=== PATIENT | female | born 1970 | race Caucasian/White ===

== ENCOUNTER → 2023-01-01 09:31 | Outpatient (BNVA) | payer OTHER, SELFPAY | PROVIDERS: PCP Physician Assistant; Visit Provider Nurse Practitioner Family | DX: M25.511 Pain in right shoulder (principal); M19.011 Primary osteoarthritis, right shoulder; M75.101 Unspecified rotator cuff tear or rupture of right shoulder, not specified as traumatic; G56.03 Carpal tunnel syndrome, bilateral upper limbs; G89.4 Chronic pain syndrome | CPT/HCPCS: 99202 ==

== ENCOUNTER 2023-01-15 13:16 | Outpatient (AMB) | payer OTHER, SELFPAY ==
--- NOTE | 2023-01-15 13:16 | A.OFFVIS_ITS ---
Intake Intake Visit Reasons: question about inj w/ US Allergies fluoxetine [From PROZAC] Allergy (Intermediate, Verified 01/01/23 09:37) HEADACHE carisoprodol [From SOMA] Allergy (Unknown, Verified 01/01/23 09:37) SWELLING Prozac Allergy (Unknown, Uncoded 04/09/12 00:00) upset stomach Soma Allergy (Unknown, Uncoded 04/09/12 00:00) upset stomach HPI question about inj w/ US HPI Details 52-year-old female presenting today for tele health visit to discuss upcoming shoulder procedure. She has shoulder pain that radiates to her neck. She states that her pain has been worsening recently. She has severe pain in her neck that triggers her headaches. Her pain started about 9?10 months ago and was manageable. She now has episodes of numbness on her whole right side, including her shoulder, arm, and legs, after waking up in the morning. She usually walks for 5 minutes after waking up to resolve the numbness. 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 She has been dropping things from her hand at work. She has been using Tylenol and ibuprofen 800 mg for pain. She states that her pain is affecting her performance at work. She has been absent from work for the past two days. She has already tried physical therapy, lidocaine, or Salonpas patches in the past. She had tried tramadol in the past with good benefits. She has a scheduled appointment for MRI of the right shoulder. [facility] Medical History (Updated 01/01/23 @ 12:15 by NOÉ Durán) Bilateral carpal tunnel syndrome Borderline hypercholesterolemia COPD (chronic obstructive pulmonary disease) Diverticulosis Fibromyalgia Former tobacco use Hepatitis C without hepatic coma Hx of polydrug abuse Hypertension Hypothyroid Knee pain Vitamin A deficiency Weakness of left leg Surgical History H/O: hysterectomy History of appendectomy History of left knee replacement History of left knee surgery History of tonsillectomy Hx of cholecystectomy Social History (Updated 01/01/23 @ 09:51 by Marley Jasmine) Alcohol intake: current Alcohol intake frequency: a few times a month Patient Tobacco Use Status: Former Tobacco user Quit Date: 06/2020 Substance Use Type: Crack/Cocaine, Former Substance User and Opiates Review of Systems Const All systems reviewed & are unremarkable except as noted in HPI and below Results Reviewed Results Reviewed: No imaging is available for review. Assessment & Plan Assessment & Plan (1) Painful arc syndrome of right shoulder: Code(s): M75.101 - Unspecified rotator cuff tear or rupture of right shoulder, not specified as traumatic Plan 1. Discussed plan to proceed with in ultrasound-guided subacromial bursa injection for her potential right rotator cuff injury. Informed the patient that a glenohumeral injection is unlikely to help given the lack of significant osteoarthritis in her glenohumeral joint. 2. Will consider neck MRI in the future if her neck pain associated with upper extremity numbness and weakness continues. 3. Provided a 1 time script of tramadol 50 mg taken twice daily for the next 1 week until her shoulder injection is done. Scribed for Dr. Walker by Dell Dela Cruz, medical insurance biller, on 01/15/2023. I, Dr. Walker, have personally reviewed and agree with the information entered by the scribe. Medications: New tramadol 50 mg PO BID PRN 14 tabs 0RF pain Telehealth Telehealth Location of provider rendering services: practice address Location of patient: address on file Patient Identification confirmed using: Name, : Yes Telehealth method: voice only Patient verbally consented to treatment: Yes Patient verbally consented to billing insurance company: Yes Patient informed of any privacy concerns related to visit: Yes Minutes spent on Phone/Video with Pt.: 12 Coding Level of Care Code Tele Est Pt Level 3 (90255) Diagnoses Painful arc syndrome of right shoulder M75.101
== END 2023-01-15 13:17 | disposition home or self-care (01) ==
LOC: HO.PMC 13:16
PROVIDERS: PCP Physician Assistant; Visit Provider Internal Medicine
DX: M75.101 Unspecified rotator cuff tear or rupture of right shoulder, not specified as traumatic (principal)
CPT/HCPCS: 99213

== ENCOUNTER → 2023-01-15 13:16 | Outpatient (BNVA) | payer OTHER, SELFPAY | PROVIDERS: PCP Physician Assistant; Visit Provider Internal Medicine ==

== ENCOUNTER 2023-01-22 14:31 | Outpatient (AMB) | payer OTHER, SELFPAY ==
--- NOTE | 2023-01-22 14:34 | A.OFFVIS_ITS ---
Intake Vital Signs 01/22/23 14:35 Height 5 ft 4 in Weight 194 lb BMI 33.3 BP 138/73 Blood Pressure Location Lt brachial Position Sitting Respiration 14 Pulse 86 Pulse Source Pulse Oximeter Pulse Oximetry (%) 97 Oxygen Delivery Method Room Air Intake Visit Reasons: theraputic shoulder injection Allergies fluoxetine [From PROZAC] Allergy (Intermediate, Verified 01/22/23 14:36) HEADACHE carisoprodol [From SOMA] Allergy (Unknown, Verified 01/22/23 14:36) SWELLING Medication List - Last Reconciled 01/22/23 by Jeanine Queen LPN amlodipine 5 mg PO DAILY cholecalciferol (vitamin D3) 50 mcg PO DAILY levothyroxine 88 mcg PO DAILY tramadol 50 mg PO BID PRN HPI theraputic shoulder injection HPI0 Details 52-year-old female presenting today for a therapeutic shoulder injection. She reports worsening back, neck, and shoulder pain. She states that her s houlder blade is stiff and painful. She noticed occasional swelling in her arm, forearm, and fingers. She reports electrical sensation in her bilateral hand fingers. She has pain in the posterior side of the neck, which radiates to her head. She also experienced mild otalgia. She has not tried physical therapy for neck pain in the past. [facility] Medical History (Updated 01/01/23 @ 12:15 by NOÉ Durán) Bilateral carpal tunnel syndrome Borderline hypercholesterolemia COPD (chronic obstructive pulmonary disease) Diverticulosis Fibromyalgia Former tobacco use Hepatitis C without hepatic coma Hx of polydrug abuse Hypertension Hypothyroid Knee pain Vitamin A deficiency Weakness of left leg Surgical History H/O: hysterectomy History of appendectomy History of left knee replacement History of left knee surgery History of tonsillectomy Hx of cholecystectomy Social History (Updated 01/01/23 @ 09:51 by Marley Jasmine) Alcohol intake: current Alcohol intake frequency: a few times a month Patient Tobacco Use Status: Former Tobacco user Quit Date: 06/2020 Substance Use Type: Crack/Cocaine, Former Substance User and Opiates Review of Systems Const All systems reviewed & are unremarkable except as noted in HPI and below Physical Exam Vital Signs: Last Vital Signs Pulse 86 01/22/23 14:35 Resp 14 01/22/23 14:35 BP 138/73 01/22/23 14:35 Pulse Ox 97 01/22/23 14:35 Oxygen Delivery Method Room Air 01/22/23 14:35 BMI result Body Mass Index 33.3 General: Appears afebrile. Alert and oriented. Mood and affect appropriate. Follows and participates in conversation appropriately. Respiratory effort is unlabored. Able to transition from sit to stand unassisted. Ambulates with bilaterally normal heel strike and toe off. Office Procedures Joint Injection/Drain Joint Injection/Drain Primary Site: right shoulder Prep: site was prepped using sterile technique Injected: 40 mg of, Kenalog, with 3 mL of (bupivacaine 0.2%), 1% plain lidocaine and other (in the subacromial space) Approach Used: posterolateral (under US guidance) Procedure: The patient tolerated the procedure well Coding 26521 - Glenohumeral with ultrasound guidance Procedure code (CPT) selection complete Results Reviewed Results Reviewed: No imaging is available for review. Assessment & Plan Assessment & Plan (1) Painful arc syndrome of right shoulder: Code(s): M75.101 - Unspecified rotator cuff tear or rupture of right shoulder, not specified as traumatic (2) Chronic pain syndrome: Code(s): G89.4 - Chronic pain syndrome Plan Patient is status post subacromial injection. Patient tolerated procedure well and was discharged home in stable condition with discharge instructions. All questions were answered. We will follow-up in two weeks via telephone or in clinic to assess response to therapy. A follow-up appointment was made during today's visit. If not enough relief from the injection, will schedule her for a right temporary suprascapular nerve stimulator. Discussed the risks and benefits of the procedure with the patient in detail. All questions were answered. The patient is on board with the plan. Justification for interventional therapy: ? Patient with average pain > 6/10 ? Patient has exhausted conservative therapy Scribed for Dr. Walker by Dell Dela Cruz, medical intern, on 01/22/2023. I, Dr. Walker, have personally reviewed and agree with the information entered by the scribe. Coding Level of Care Code Est Pt Level 3 (92288) Diagnoses Painful arc syndrome of right shoulder M75.101 Chronic pain syndrome G89.4 CPT Codes Coding - Joint 8: 29186 - Glenohumeral with ultrasound guidance ([id number])
[2023-01-22 14:35] VITALS: BP 138/73; PULSE 86; RESP 14; O2SAT 97; BMI 33.3
== END 2023-01-22 15:23 | disposition home or self-care (01) ==
PROVIDERS: PCP Physician Assistant; Visit Provider Internal Medicine
DX: M75.101 Unspecified rotator cuff tear or rupture of right shoulder, not specified as traumatic (principal); G89.4 Chronic pain syndrome
CPT/HCPCS: 20611; 99213

== ENCOUNTER → 2023-01-22 14:31 | Outpatient (BNVA) | payer OTHER, SELFPAY | PROVIDERS: PCP Physician Assistant; Visit Provider Internal Medicine | DX: M75.101 Unspecified rotator cuff tear or rupture of right shoulder, not specified as traumatic (principal); G89.4 Chronic pain syndrome | CPT/HCPCS: 20611; 99212; J2795; J3301 ==

== ENCOUNTER 2023-02-07 08:09 | Outpatient (AMB) | payer OTHER, SELFPAY ==
--- NOTE | 2023-02-07 08:17 | MHC.OFFVIS ---
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 Patient reports numbness, tingling, and intermittent shooting pain in her hand started about 6 months ago and has been getting worse. Her wrist braces are no longer helping. She frequently drops items and has locking in her middle fingers. Patient had an EMG done but no other tx. 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 She states she was here today for her bilateral hands but she feels her right shoulder is her primary concerns and would like to focus on that. She reports she has pain in her right shoulder which radiates to her neck. She also c/o frequently dropping items and numbness in her shoulder and hands. She is taking Celebrex for her pain with benefits. She also had an injection in her right shoulder 1 week ago at pain mgmnt who did send her for an MRI of the right shoulder. She has a history of shoulder injury about 16 years ago. 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 [facility] Medical History Bilateral carpal tunnel syndrome Borderline hypercholesterolemia COPD (chronic obstructive pulmonary disease) Diverticulosis Fibromyalgia Former tobacco use Hepatitis C without hepatic coma Hx of polydrug abuse Hypertension Hypothyroid Knee pain Vitamin A deficiency Weakness of left leg Surgical History H/O: hysterectomy History of appendectomy History of left knee replacement History of left knee surgery History of tonsillectomy Hx of cholecystectomy Social History (Updated 02/07/23 @ 08:21 by FAINA Yadav) Alcohol intake: current Alcohol intake frequency: a few times a month Patient Tobacco Use Status: Former Tobacco user Quit Date: 06/2020 Substance Use Type: Crack/Cocaine, Former Substance User and Opiates Current occupational status: employed 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, right hand dominant Review of Systems Const All systems reviewed & are unremarkable except as noted in HPI and below Physical Exam Vital Signs: BMI result Body Mass Index 33.3 Const General: cooperative, healthy appearing, comfortable, no acute distress, well developed and alert Orientation/consciousness: patient oriented x3 HEENT Head: Yes normal to inspection, Yes normocephalic and Yes atraumatic Eyes General: appearance normal, both eyes and all related structures Resp Effort & Inspection: normal respiratory effort and able to speak in complete sentences Cardio Rate: regular rate Peripheral pulses: Peripheral pulses 2+ throughout GI Palpation (GI): Soft to palpation Skin Lesions: no lesions Rashes: no rashes Neuro General: patient oriented x3 Extrem Other: Right shoulder normal to inspection. Tenderness over the bicipital groove and along the deltoid region of the shoulder. Forward flexion to 175, external rotation to 90, internal rotation to S1. 5/5 RTC strength She is able to activate her RTC however there is some discomfort associated with this when compared to the contralateral side. Positive Guerrero. NVI. Results Reviewed Results Reviewed: xrays of the right shoulder from [facility] in 11/2022 1.Mild ac joint oa MRI from [facility] 01/29/23 1.small intrasubstance partial tear at the junction of the middle and posterior one third portion of the supraspinatus tendon 2.possible additional bursal sided fraying or superficial partial tearing of the posterior tendon but without clearly measurable defect 3.minimal arthrosis of the ac joint 4.minimal partial tearing along the myotendinous junction of the infraspinatus tendon without measurable defect 5.trace edema and or fluid in the subacriomial deltoid bursa compatible with bursitis Assessment & Plan Assessment & Plan (1) Painful arc syndrome of right shoulder: Code(s): M75.101 - Unspecified rotator cuff tear or rupture of right shoulder, not specified as traumatic (2) Partial thickness rotator cuff tear: Code(s): M75.110 - Incomplete rotator cuff tear or rupture of unspecified shoulder, not specified as traumatic Plan She was given an injection of right shoulder back on January 22 with pain management which she states has given her some relief. She was not given an order of physical therapy so I did put that in today and I stated the importance of doing this. I would like to see her back in 6 weeks for reevaluation, sooner if needed. Orders: Orders PT Evaluation and Treatment Today M75.101 - Unspecified rotator cuff tear or rupture of right shoulder, not specified as traumatic, M75.110 - Incomplete rotator cuff tear or rupture of unspecified shoulder, not specified as traumatic Patient Instructions: Scribed for Christina Wolfe PA-C, by Reyes Olivares medical massage therapist, on 02/07/2023 at 8:15 AM EST. I, Christina Wolfe PA-C, have personally reviewed and agree with the information entered by the scribe. Coding Level of Care Code New Pt Level 3 (53611) Diagnoses Painful arc syndrome of right shoulder M75.101 Partial thickness rotator cuff tear M75.110
[2023-02-07 08:29] VITALS: BMI 33.3
== END 2023-02-07 09:03 | disposition home or self-care (01) ==
PROVIDERS: PCP Physician Assistant; Visit Provider Physician Assistant
DX: M75.111 Incomplete rotator cuff tear or rupture of right shoulder, not specified as traumatic (principal); G56.03 Carpal tunnel syndrome, bilateral upper limbs
CPT/HCPCS: 99203

== ENCOUNTER → 2023-02-07 08:09 | Outpatient (BNVA) | payer OTHER, SELFPAY | PROVIDERS: PCP Physician Assistant; Visit Provider Physician Assistant | DX: G56.03 Carpal tunnel syndrome, bilateral upper limbs (principal); M75.101 Unspecified rotator cuff tear or rupture of right shoulder, not specified as traumatic; M75.111 Incomplete rotator cuff tear or rupture of right shoulder, not specified as traumatic; M79.7 Fibromyalgia; F14.21 Cocaine dependence, in remission; F11.11 Opioid abuse, in remission | CPT/HCPCS: 99202 ==

== ENCOUNTER 2023-02-23 06:55 | Outpatient (RCR) | payer OTHER, SELFPAY ==
--- NOTE | 2023-02-23 07:57 | MHC.PT.EP ---
[facility] [place] Office [place] Office [place] Office [address] [phone] F: [phone] F: [phone] F: [phone] F: [phone] Physical Therapy Plan of Care Date of Evaluation: Date of Surgery: Diagnosis: R partial thickness rotator cuff tear Assessment: Patient is a 53 year old R handed female who presents with s/s consistent with R shoulder pain. 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 Patient past medical history includes TKA, history of shoulder pain, fibromyalgia, Hep C, and COPD. Current impairments include pain, posture, ROM, strength, activity tolerance and functional mobility. Functional limitations include decreased ability to sleep, lift, carry, reach, chop and prep food. Patient is motivated with good rehab potential. Skilled PT will address impairments and functional limitations in order to achieve goals. Frequency and Duration: The patient will be seen 1x/week for 6 weeks Short Term Goals: I with HEP - 2 weeks AROM flexion and abduction 120 - 3 weeks ER 60 AROM - 3 weeks improved postural awareness - 3 weeks Motor Expert Goals: Strength 4+/5 grossly - 5 weeks SPADI 60/130 - 5 weeks AROM WNL pain free - 5 weeks return to all work activities max pain 2/10 - 5 weeks Treatment Plan: Modalities to reduce pain, spasms and effusion. Manual therapy to restore motion and function. Therapeutic exercise to improve strength and flexibility. Neuromuscular re-education for posture and balance. Therapeutic activities to return to functional activities of daily living. Electronically signed by: Servando Ibarra, PT Please sign and return to therapist. Thank you for your referral.
--- NOTE | 2023-07-24 10:33 | MHC.PT.DC ---
[facility] [place] [facility] [place] [facility] [place] [facility] [address] Anneliese Naqvi [address] [phone] F: [phone] F: [phone] F: [phone] F: [phone] Physical Therapy Discharge Report Diagnosis: R partial thickness rotator cuff tear Date of Surgery: Date of Evaluation: 02/23/23 Date of Discharge: 03/26/23 Treatments to Date: 1 Cancellations to Date: No Shows to Date: Discharge Status: Independent with HEP Patient Elected to Stop Discharge Summary: Pt did not return after evaluation. Patient is a 53 year old R handed female who presents with s/s consistent with R shoulder pain. 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 Patient past medical history includes TKA, history of shoulder pain, fibromyalgia, Hep C, and COPD. Current impairments include pain, posture, ROM, strength, activity tolerance and functional mobility. Functional limitations include decreased ability to sleep, lift, carry, reach, chop and prep food. Patient is motivated with good rehab potential. Skilled PT will address impairments and functional limitations in order to achieve goals. Electronically signed by: Servando Ibarra, PT Please sign and return to therapist. Thank you for your referral.
== END 2023-07-24 10:34 | disposition home or self-care (01) ==
LOC: HO.PTCHIC 06:55
PROVIDERS: PCP Internal Medicine; Visit Provider Physician Assistant
DX: M75.101 Unspecified rotator cuff tear or rupture of right shoulder, not specified as traumatic (principal); M75.110 Incomplete rotator cuff tear or rupture of unspecified shoulder, not specified as traumatic
CPT/HCPCS: 97110; 97163

== ENCOUNTER 2023-07-12 16:38 | Emergency (ER) | payer OTHER, SELFPAY ==
[2023-07-12 17:12] VITALS: BP 184/97; PULSE 94; RESP 20; TEMP 37.9; O2SAT 97; BMI 34.4
--- NOTE | 2023-07-12 17:29 | ED.GENADULT ---
HPI - General Adult General Chief complaint: General Medical Stated complaint: covid, stomach sore, hurts to walk? Time Seen by Provider: 07/12/23 17:26 Source: patient Mode of arrival: ambulatory Limitations: no limitations History of Present Illness HPI narrative: 53 yold female presents to the ED for painful abscess on abdomen for the past 3 days. patient also recently diagnosed with covid on sunday. Patient states no chest pain, shortnes of breath, drooling, or recent trauam. Related Data Home Medications Medication Instructions Recorded Confirmed amlodipine 5 mg tablet 5 mg PO DAILY 01/01/23 01/22/23 cholecalciferol (vitamin D3) 50 50 mcg PO DAILY 01/01/23 01/22/23 mcg (2,000 unit) tablet levothyroxine 88 mcg tablet 88 mcg PO DAILY 01/01/23 01/22/23 Previous Rx's Medication Instructions Recorded cephalexin 500 mg capsule 500 mg PO QID 7 days #28 caps 07/12/23 doxycycline hyclate 100 mg capsule 100 mg PO BID 7 days #14 caps 07/12/23 naproxen 500 mg tablet 500 mg PO BID PRN pain 7 days #14 07/12/23 tabs Allergies Allergy/AdvReac Type Severity Reaction Status Date / Time fluoxetine [From PROZAC] Allergy Intermediate HEADACHE Verified 02/07/23 08:21 carisoprodol [From SOMA] Allergy Unknown SWELLING Verified 02/07/23 08:21 Review of Systems Review of Systems: painful abscess on abdomen Yes all other systems are reviewed and are negative PMFSH Past Medical History Onset Date is defined in the Problem List Problems that require an onset date and time if occurred within 24 hrs of arrival to the ED Aortic Dissection and Rupture; Neurologic impairment; Cardiopulmonary Arrest; Endotracheal Intubation; Insertion or Replacement of Mechanical Circulatory Assist Device Medical History Bilateral carpal tunnel syndrome Borderline hypercholesterolemia COPD (chronic obstructive pulmonary disease) Diverticulosis Fibromyalgia Former tobacco use Hepatitis C without hepatic coma Hx of polydrug abuse Hypertension Hypothyroid Knee pain Vitamin A deficiency Weakness of left leg Surgical History H/O: hysterectomy History of appendectomy History of left knee replacement History of left knee surgery History of tonsillectomy Hx of cholecystectomy Social History Social History (Updated 02/07/23 @ 08:21 by FAINA Yadav) Alcohol intake: current Alcohol intake frequency: a few times a month Patient Tobacco Use Status: Former Tobacco user Quit Date: 06/2020 Substance Use Type: Crack/Cocaine, Former Substance User and Opiates Advance Directives: No Advance Directives Information Provided: No Current occupational status: employed Current occupation: [employer] kitchen, right hand dominant Physical Exam ED Vital Signs: Vital Signs - 24 hr 07/12/23 17:12 Temperature 100.3 F Pulse Rate 94 Respiratory Rate 20 Blood Pressure 184/97 H Pulse Oximetry 97 Oxygen Delivery Method Room Air BMI result Body Mass Index 34.4 Const General: cooperative, healthy appearing, comfortable, no acute distress, well developed, alert, awake and Physically active Orientation/consciousness: oriented to person, oriented to place, oriented to time and patient oriented x3 HENMT Head: Yes normal to inspection, Yes No palpable skull fracture present, Yes normocephalic and Yes atraumatic Ears: hearing grossly normal bilaterally, external ears normal, TM's normal bilaterally, TM normal on the right, TM normal on the left, EAC's normal, mastoids normal and no periauricular adenopathy Throat: Yes posterior oropharynx normal, Yes tonsils normal and Yes uvula midline Eyes General: appearance normal, both eyes and all related structures Neck Neck: Yes normal visual inspection, Yes full ROM, Yes no lymphadenopathy, Yes no meningeal signs, Yes trachea midline, Yes supple, No anterior neck swelling and No tender Chest Chest palpation & inspection: normal inspection of the chest and normal palpation of entire chest wall Resp Effort & Inspection: normal respiratory effort and able to speak in complete sentences Auscultation: clear to auscultation bilaterally Cardio Jugular venous distension: no JVD Heart sounds: S1 normal heart sound present and S2 normal heart sound present GI Inspection: Yes normal to inspection Palpation (GI): Soft to palpation, not firm, Tenderness to palpation present (GI), no guarding and not rigid Abdomen image: 1. positive for area of erythema, warmth, tenderness, hard mass very superficial with opening negative for drainage. negative fluctulance. Beside ultrasound negative for abscesses. SHows cobble stone cellulitis. 2. positive for area of erythema, warmth, tenderness, hard mass, very superficial with opening negative for drainage. negative fluctulance. Beside ultrasound negative for abscesses. SHows cobble stone cellulitis. General: Yes no CVA tenderness Back/Spine/Pelvis Back: no CVA tenderness and No back tenderness Skin General skin exam: no rashes or lesions noted, elasticity normal and turgor normal Neuro General: oriented to person, oriented to place, oriented to time, patient oriented x3, gait normal, tone normal, moves all extremities, Normal light touch and pain sensation, no meningeal signs and no focal motor deficits Extrem General: Yes normal to inspection, Yes full ROM and Yes capillary refill normal Psych Appearance: grossly normal, well kempt and not disheveled Medical Decision Making Medical Decision Making MDM Narrative: 53-year-old female with a known positive COVID since Sunday presents to ED for bilateral small area of redness on the abdomen as pain bilateral. Also ear pain. Ultrasound negative for abscess drainage. Not suspecting peritoneal deep abdominal abscess. Ears exam normal. NOt in respiratory dsitress. NO indication for INicision and drainage. Discharge with antibotics. not suspecting covid rash Differential Diagnosis Differential Diagnoses: The differential diagnosis associated with the presentation includes (abscess. Cellulitis) External Record Review External record reviewed: Other (Prior visits) Prescription Management I considered prescription management with: Pain Medication and Antibiotic Discharge Plan Discharge Clinical Impression: Cellulitis Patient Disposition: Home, Self-Care Instructions: Cellulitis (ED), Abscess (ED), Warm Compress or Soak (ED) Additional Instructions: Recommend warm compress 4 times a day for 15 minutes on area of redness. Return to ED immediately for any increased swelling, increased redness, pus discharge, foul odor, fever, chills, chest pain, shortness of breath, O2 saturation below 94% on portable pulse ox from pharmacy, or any other concerning symptoms. Prescriptions: New cephalexin 500 mg capsule 500 mg PO QID 7 Days Qty: 28 0RF doxycycline hyclate 100 mg capsule 100 mg PO BID 7 Days Qty: 14 0RF naproxen 500 mg tablet 500 mg PO BID PRN (Reason: pain) 7 Days Qty: 14 0RF No Action levothyroxine 88 mcg tablet 88 mcg PO DAILY amlodipine 5 mg tablet 5 mg PO DAILY cholecalciferol (vitamin D3) 50 mcg (2,000 unit) tablet 50 mcg PO DAILY Stand Alone Forms: Work/School Release Interventions: ED Discharge Assessment Last Done: 07/12/23 17:53 Discharge Date/Time: 07/12/23 17:54 Print Language: Ukrainian
== END 2023-07-12 17:54 | disposition home or self-care (01) ==
PROVIDERS: Emergency Provider Emergency Medicine; PCP Internal Medicine
DX: U07.1 COVID-19 (principal); L03.311 Cellulitis of abdominal wall
CPT/HCPCS: 99282